=== PATIENT | female | born 1980 | race Caucasian/White ===

== ENCOUNTER → 2016-05-17 | Outpatient (CLI) | payer OTHER ==
--- NOTE | 2016-05-17 11:27 | US ---
EXAMINATION TYPE: US pelvis complete transvag DATE OF EXAM: 05/17/2016 11:06 AM COMPARISON: Previous study dated 12/26 11. CLINICAL HISTORY: R19.00/R10.2Pelvic mass/pain. Left pelvic pain, prior , partial hysterecto my TECHNIQUE: Transvaginal (TV) and Transabdominal (TA) Date of LMP: unknown EXAM MEASUREMENTS: Uterus: Surgically absent Endometrial Stripe: Surgically absent Right Ovary: 3.8 x 2.1 x 3.0 cm Left Ovary: 4.0 x 2.4 x 2.2 cm TECHNOLOGIST IMPRESSION: 1. Uterus: surgically absent vaginal cuff = 1.3cm 2. Endometrium: Surgically absent 3. Right Ovary: cystic area = 2.0 x 1.9 x 2.5cm 4. Left Ovary: appears wnl 5. Bilateral Adnexa: appears wnl IMPRESSION: 1. Status post subtotal hysterectomy. 2. Simple appearing right ovarian cyst.
== END | disposition home or self-care (01) ==
LOC: RADUSWWP 10:32
PROVIDERS: ATTEND Obstetrics & Gynecology
DX: N83.201 Unspecified ovarian cyst, right side (principal); Z90.710 Acquired absence of both cervix and uterus
CPT/HCPCS: 76830; 76856

== ENCOUNTER → 2017-05-25 | Outpatient (CLI) | payer BC ==
--- NOTE | 2017-05-25 11:53 | CT ---
EXAMINATION TYPE: CT brain w con DATE OF EXAM: 05/25/2017 COMPARISON: NONE HISTORY: MCKEON, sensitivity to light CT DLP: 935.6 mGycm Automated exposure control for dose reduction was used. CONTRAST: CT scan of the head is performed with IV Contrast, patient injected with 100 mL of Omnipaque 300. FINDINGS: There is no abnormal enhancing mass or midline shift identified. The ventricles and sulci are within normal limits in size. The globes are intact and the visualized sinuses are clear. IMPRESSION: Negative contrast enhanced head CT exam.
== END | disposition home or self-care (01) ==
LOC: RADCTMAIN 11:17
PROVIDERS: ATTEND Internal Medicine
DX: R51 Headache (principal)
CPT/HCPCS: 70460; Q9967

== ENCOUNTER 2018-03-17 21:58 | Emergency (ER) | payer BC ==
[2018-03-17 23:35] LABS: Amphetamine Screen,Urine Detected (NotDetected); Barbiturate Screen,Urine Not Detected (NotDetected); Benzodiazepines Screen,Urine Not Detected (NotDetected); Cocaine Screen,Urine Not Detected (NotDetected); Methadone Screen, Urine Not Detected (NotDetected); Opiate Screen,Urine Not Detected (NotDetected); Oxycodone Screen, Urine Not Detected (NotDetected); Phencyclidine Screen,Urine Not Detected (NotDetected); Tricyclic Antidepressant,Urine Not Detected (NotDetected); Urn Cannabinoid Scrn Not Detected (NotDetected)
--- NOTE | 2018-03-17 23:51 | ED ---
General Adult HPI - General Chief complaint: Psychiatric Symptoms Stated complaint: suicidal/petition Time Seen by Provider: 03/17/18 22:14 Source: patient, police Mode of arrival: ambulatory Limitations: no limitations - History of Present Illness Initial comments: Nicolasa is a 37-year-old female history of depression and anxiety who presents to the emergency department today in police custody for psychiatric evaluation. Per the patient she was in an argument with her who she is currently in the process of getting a divorce from, patient states that she simply told him that she was done. Patient states that she was trying to indicate to him that she was done fighting and that she did not want to deal with him anymore however he took it to interpret that she was suicidal and contacted the police. Patient reports she does have a history of depression and anxiety, her medications are prescribed by her primary care physician she's not had any recent changes in her medication she reports she's been compliant with her medications. Patient states that she feels her is just trying to make her look crazy because they're and have a drawnout court sanders. Per the police and the petition they witnessed text messages from the patient to her estranged stating that she wanted it all to end, saying goodbye multiple times and making reference to her life insurance paying off. Per the petition the patient's triplet 15-year-old children also witnessed the patient stating that she was going to drive her car into the river. - Related Data Allergies Allergy/AdvReac Type Severity Reaction Status Date / Time acetaminophen Allergy Rash/Hives Verified 03/17/18 22:12 [From Darvocet-N] propoxyphene Allergy Rash/Hives Verified 03/17/18 22:12 [From Darvocet-N] Review of Systems ROS Statement: Those systems with pertinent positive or pertinent negative responses have been documented in the HPI. ROS Other: All systems not noted in ROS Statement are negative. Past Medical History Past Medical History: Thyroid Disorder History of Any Multi-Drug Resistant Organisms: None Reported Past Surgical History: Adenoidectomy, Section, Hysterectomy, Tonsillectomy Additional Past Surgical History / Comment(s): thyroidectomy, ovarian cyst Past Psychological History: Anxiety, Depression Smoking Status: Current every day smoker Past Alcohol Use History: Occasional Past Drug Use History: None Reported General Exam - General Exam Comments Initial Comments: Physical Exam GENERAL: Patient is well-developed and well-nourished. Patient is nontoxic and well- hydrated and is in no distress. HENT: Normocephalic, Atraumatic. EYES: PERRL, EOMI PULMONARY: Unlabored respirations. No audible rales rhonchi or wheezing was noted. CARDIOVASCULAR: There is a regular rate and rhythm without any murmurs gallops or rubs. ABDOMEN: Soft and nontender with normal bowel sounds. SKIN: Skin is clear with no lesions or rashes and otherwise unremarkable. : Deferred NEUROLOGIC: Patient is alert and oriented x3. Moving all extremities spontaneously MUSCULOSKELETAL: Normal extremities with adequate strength and full range of motion. No lower extremity swelling or edema. No calf tenderness. PSYCHIATRIC: Anxious appearing, tapping her leg up and down very quickly, fidgeting with her hands Denies suicidal or homicidal intent Limitations: no limitations Limitations: no limitations Course Vital Signs 03/17/18 03/18/18 22:06 01:43 Temperature 97.8 F 97.7 F Pulse Rate 77 100 Respiratory 20 18 Rate Blood Pressure 147/96 126/77 O2 Sat by Pulse 99 100 Oximetry Medical Decision Making - Medical Decision Making The patient was seen and evaluated, history is obtained from the patient and review of the petition from police Is the patient with a history of depression and anxiety who is currently going through what sounds like a very unpleasant divorce Patient admits to being in a verbal altercation with her soon-to-be ex-, she states that she stated that she was done but that she wanted indicate she was not fighting with him however she believes he has misinterpreted her statements and is just "trying to make me look crazy" Police state that the patient sent multiple text messages indicating her goodbyes and making reference to the palate of her life insurance the also states that her triplet 15-year-old state here the patient states that she wanted drive her car into the river. Patient does state that she did make a statement that she was going to drive her car into the river but that fell was ordered for 6 months ago. She denies any statement today. Patient medically cleared for evaluation by psychiatry Patient evaluated by EPS - recommend discharge home with out patient follow up - Lab Data Lab Results 03/17/18 03/17/18 Range/Units 22:33 22:33 Urine HCG, Qual Not Detected (Not Detectd) Urine Opiates Screen Not Detected (NotDetected) Ur Oxycodone Screen Not Detected (NotDetected) Urine Methadone Screen Not Detected (NotDetected) Ur Propoxyphene Screen Not Detected (NotDetected) Ur Barbiturates Screen Not Detected (NotDetected) U Tricyclic Antidepress Not Detected (NotDetected) Ur Phencyclidine Scrn Not Detected (NotDetected) Ur Amphetamines Screen Detected H (NotDetected) U Methamphetamines Scrn Not Detected (NotDetected) U Benzodiazepines Scrn Not Detected (NotDetected) Urine Cocaine Screen Not Detected (NotDetected) U Marijuana (THC) Screen Not Detected (NotDetected) Disposition Clinical Impression: Depression Disposition: HOME SELF-CARE Condition: Good Is patient prescribed a controlled substance at d/c from ED?: No Referrals: Ramiro Wadsworth MD [Primary Care Provider] - 1-2 days
[2018-03-18 01:44] VITALS: BP 126/77; PULSE 100; RESP 18; TEMP 97.7
== END 2018-03-18 02:08 | disposition home or self-care (01) ==
LOC: EC 21:58
DX: F32.9 Major depressive disorder, single episode, unspecified (principal); F41.9 Anxiety disorder, unspecified; F17.200 Nicotine dependence, unspecified, uncomplicated; Z88.5 Allergy status to narcotic agent; Z88.6 Allergy status to analgesic agent; Z63.5 Disruption of family by separation and divorce
CPT/HCPCS: 80306; 81025; 82075; 99285

== ENCOUNTER → 2018-05-03 | Outpatient (CLI) | payer BC ==
--- NOTE | 2018-05-04 11:31 | US ---
EXAMINATION TYPE: US thyroid st tissue head/neck DATE OF EXAM: 05/03/2018 COMPARISON: NONE CLINICAL HISTORY: R94.6 Abn thyroid labs, R22.0 Swelling/mass/lump. Abnormal thyroid labs. Patient st ates partial thyroidectomy at age 14 due to goiter GLAND SIZE: Right Lobe: 2.6 x 0.6 x 1.2 cm Overall Parenchyma: heterogenous Left Lobe: 2.7 x 0.7 x 1.0 cm Overall Parenchyma: heterogeneous Isthmus Thickness: 0.3 cm NODULES RIGHT: # of nodules measured on right: 0 LEFT: # of nodules measured on left: 0 ISTHMUS: # of nodules measured in the isthmus: 0 Bilateral neck scanned, no evidence of lymphadenopathy. IMPRESSION: No sizable thyroid nodules. Tissue is somewhat heterogeneous correlate for thyroiditis.
== END | disposition home or self-care (01) ==
LOC: RADUSWWP 16:27
PROVIDERS: ATTEND Internal Medicine
DX: R22.0 Localized swelling, mass and lump, head (principal); R94.6 Abnormal results of thyroid function studies
CPT/HCPCS: 76536

== ENCOUNTER → 2018-12-06 | Outpatient (CLI) | payer BC ==
--- NOTE | 2018-12-06 15:21 | MR ---
EXAMINATION TYPE: MR knee LT wo con DATE OF EXAM: 12/06/2018 COMPARISON: None HISTORY: L knee pain TECHNIQUE: Multiplanar, multisequence imaging of the knee is performed without IV contrast. FINDINGS: MEDIAL MENISCUS: There is increased signal within the posterior horn medial meniscus compatible some internal derangement. No communication with the articular surface is evident. LATERAL MENISCUS: Anterior and posterior horns are intact without tear. CRUCIATE LIGAMENTS: Anterior cruciate ligament is intact. There may be some thickening within its mid portion. The posterior cruciate ligament however is poorly visualized. Correlate with the mechanism o f injury. Isolated posterior cruciate ligament injury is unusual. COLLATERAL LIGAMENTS: The medial collateral ligament and lateral collateral ligament complex are inta ct and unremarkable. EXTENSOR MECHANISM: Visualized quadriceps and patellar tendons are intact. EFFUSION: Small joint effusion is present. POPLITEAL CYST: No popliteal/griggs cyst. TRICOMPARTMENT SPACES: Preserved CARTILAGE: Preserved BONE MARROW SIGNAL: No focal abnormal marrow signal is appreciated. OTHER: No additional significant abnormality is appreciated. IMPRESSION: 1. Posterior cruciate ligament is poorly visualized. Isolated posterior cruciate ligament is an unusu al injury. Correlate with the mechanism of injury. 2. Small joint effusion. 3. Internal derangement posterior horn medial meniscus.
== END ==
LOC: RADMRIMAIN 11:00
PROVIDERS: ATTEND Internal Medicine
DX: S89.82XA Other specified injuries of left lower leg, initial encounter (principal); M23.322 Other meniscus derangements, posterior horn of medial meniscus, left knee

== ENCOUNTER → 2019-01-30 | Outpatient (CLI) | payer BC ==
--- NOTE | 2019-01-31 06:57 | US ---
EXAMINATION TYPE: US venous doppler duplex LE LT DATE OF EXAM: 01/30/2019 4:53 PM COMPARISON: NONE CLINICAL HISTORY: M79.604 left leg. SIDE PERFORMED: Left TECHNIQUE: The lower extremity deep venous system is examined utilizing real time linear array sonog dionicio with graded compression, doppler sonography and color-flow sonography. VESSELS IMAGED: External Iliac Vein (EIV) Common Femoral Vein Deep Femoral Vein Greater Saphenous Vein * Femoral Vein Popliteal Vein Small Saphenous Vein * Left Leg: negative for DVT Grayscale, color doppler, spectral doppler imaging performed of the deep veins of the left lower extr emity. There is normal flow, compressibility, vascular waveforms. IMPRESSION: No sonographic evidence of deep venous thrombosis within the left lower extremity.
== END | disposition home or self-care (01) ==
LOC: RADUSWWP 16:11
PROVIDERS: ATTEND Nurse Practitioner Adult Health
DX: M79.662 Pain in left lower leg (principal); R22.42 Localized swelling, mass and lump, left lower limb

== ENCOUNTER → 2019-02-11 | Outpatient (CLI) | payer BC ==
[2019-02-11 13:17] LABS: Basophils % (A) 0 %; Eosinophils # (A) 0.4 k/uL (0-0.7); Eosinophils % (A) 6 %; HCT 40.1 % (34.0-46.0); HGB 13.7 gm/dL (11.4-16.0); Lymphocytes # (A) 1.6 k/uL (1.0-4.8); Lymphocytes % (A) 22 %; MCH 29.8 pg (25.0-35.0); MCHC 34.1 g/dL (31.0-37.0); MCV 87.3 fL (80.0-100.0); Mean Platelet Volume 6.5; Monocytes # (A) 0.3 k/uL (0-1.0); Monocytes % (A) 4 %; Neutrophils # (A) 4.7 k/uL (1.3-7.7); Neutrophils % (A) 67 %; Platelet Count 232 k/uL (150-450)
--- NOTE | 2019-02-11 13:26 | XR ---
EXAMINATION TYPE: XR chest 2V DATE OF EXAM: 02/11/2019 COMPARISON: None HISTORY: 38-year-old female herniated nucleus pulposus, presurgical evaluation TECHNIQUE: Frontal and lateral views FINDINGS: The cardiomediastinal silhouette, aorta, and pulmonary vasculature are within normal limits. Lungs an d pleural spaces are clear. IMPRESSION: No acute cardiopulmonary process.
[2019-02-11 13:31] LABS: INR 0.9 (<1.2); Partial Thromboplastin Time 24.9 sec (22.0-30.0); Prothrombin Time 9.6 sec (9.0-12.0)
[2019-02-11 13:33] LABS: African American GFR (CKD) >90 (>60 ml/min/1.73 sqM); Anion Gap 8 mmol/L; Blood Urea Nitrogen 11 mg/dL (7-17); Calcium 9.6 mg/dL (8.4-10.2); Carbon Dioxide 19 mmol/L (22-30); Chloride 109 mmol/L (98-107); Glucose 100 mg/dL (74-99); Non-African American GFR(CKD) >90 (>60 ml/min/1.73 sqM); Potassium 4.3 mmol/L (3.5-5.1); Sodium 136 mmol/L (137-145)
[2019-02-11 13:40] LABS: Appearance,Urine Clear (Clear); Bilirubin,Urine Negative (Negative); Blood,Urine Negative (Negative); Color,Urine Yellow; Glucose,Urine (UA) Negative (Negative); Ketones,Urine Negative (Negative); Leukocyte Esterase,Urine Negative (Negative); Nitrite,Urine Negative (Negative); PH, Urine 5.5 (5.0-8.0); Protein,Urine Negative (Negative); Specific Gravity,Urine 1.015 (1.001-1.035); Urobilinogen,Urine <2.0 mg/dL (<2.0)
== END | disposition home or self-care (01) ==
LOC: LABPAT 11:56
PROVIDERS: ATTEND Orthopaedic Surgery Orthopaedic Surgery of the Spine
DX: Z01.812 Encounter for preprocedural laboratory examination (principal); Z01.818 Encounter for other preprocedural examination; M51.24 Other intervertebral disc displacement, thoracic region
CPT/HCPCS: 36415; 71046; 80048; 81003; 85025; 85610; 85730; 93005

== ENCOUNTER 2019-02-17 12:52 | Day surgery (SDC) | payer BC ==
[2019-02-11 15:01] VITALS: BMI 32.2
[~2019-02-17 12:52] MED LIST: BACITRACIN 50,000 UNIT, POLYMYXIN B 500,000 UNIT in SODIUM CHLORIDE 0.9% IRRIGATIO 1,00... IRRIGATION ONE; DEXAMETHASONE SOD PHOSPHATE 10 MG/ML 1 ML VIAL IV ONE; MIDAZOLAM 2 MG/2 ML VIAL IV PRN; ONDANSETRON 4 MG/2 ML VIAL IVP ONE; SCOPOLAMINE 1.5MG/72HR PATCH TRANSDERM ONE
[2019-02-17] MEDS ORDERED: LIDOCAINE 1% 20 ML VIAL (10MG/ML) FOR IV START INTRADERMA ONE (13:23)
[2019-02-17] MEDS ORDERED: LACTATED RINGERS 1,000 ML IV ONE (13:23)
[2019-02-17] MEDS ORDERED: ONDANSETRON 4 MG/2 ML VIAL ONE (14:47)
[2019-02-17] MEDS ORDERED: HYDROmorphone (PF) 1 MG/ML ONE (14:47)
[2019-02-17] MEDS ORDERED: LIDOCAINE 1% INJ 10MG/ML (20 ML MDV) ONE (14:47)
[2019-02-17] MEDS ORDERED: SUCCINYLCHOLINE CHLORIDE 100 MG/5 ML SYR IV ONE (14:47)
[2019-02-17] MEDS ORDERED: KETAMINE 10 MG/ML 20 ML VIAL ONE (14:47)
[2019-02-17] MEDS ORDERED: MIDAZOLAM 2 MG/2 ML VIAL ONE (14:47)
[2019-02-17] MEDS ORDERED: PROPOFOL 10 MG/ML 20 ML VIAL IV ONE (14:47)
[2019-02-17] MEDS ORDERED: fentaNYL (PF) 50 MCG/ML 2 ML AMP ONE (14:47)
[2019-02-17] MEDS ORDERED: LIDOCAINE 1%-EPI 1:100,000 20 ML VIAL SQ ONE (15:25)
[2019-02-17] MEDS ORDERED: BUPIVACAINE (PF) 0.25% 30 ML VIAL SQ ONE (15:25)
[2019-02-17] MEDS ORDERED: THROMBIN (BOVINE) 5,000 UNIT VIAL TOPICAL ONE (15:25)
[2019-02-17] MEDS ORDERED: GELATIN SPONGE,ABSORB (LARGE) 1 EACH SPONGE TOPICAL ONE (15:25)
[2019-02-17] MEDS ORDERED: methylPREDNISolone ACETATE 40 MG/ML 1 ML VIAL INJ ONE (16:01)
[2019-02-17] MEDS ORDERED: HYDROcodone/APAP 5-325MG 1 EACH TAB PO PRN (16:25)
[2019-02-17] MEDS ORDERED: HYDROmorphone 0.5 MG/0.5 ML SYRINGE IVP PRN (16:25)
[2019-02-17] MEDS ORDERED: IBUPROFEN 600 MG TAB PO PRN (16:25)
[2019-02-17] MEDS ORDERED: KETOROLAC 30 MG/ML 1 ML VIAL IVP PRN (16:25)
[2019-02-17] MEDS ORDERED: ONDANSETRON 4 MG/2 ML VIAL IVP PRN (16:25)
[2019-02-17] MEDS ORDERED: MAGNESIUM HYDROXIDE 2,400 MG/10 ML CUP PO PRN (16:25)
[2019-02-17] MEDS ORDERED: BENZOCAINE/MENTHOL LOZENG 1 EACH LOZENGE MUCOUS MEM PRN (16:25)
[2019-02-17] MEDS ORDERED: IBUPROFEN 800 MG TAB PO PRN (16:27)
--- NOTE | 2019-02-17 16:32 | P.OP ---
Date of Procedure: 02/17/19 Preoperative Diagnosis: Herniated nucleus pulposis L4 5, left lower extremity radiculopathy, low back pain, left lower extremity weakness Postoperative Diagnosis: Same Anesthesia: GETA Pathology: none sent Condition: stable Disposition: PACU Description of Procedure: BRIEF OPERATIVE NOTE Preoperative Diagnosis:Herniated nucleus pulposis L4 5, left lower extremity radiculopathy, low back pain, left lower extremity weakness Postoperative Diagnosis:Herniated nucleus pulposis L4 5, left lower extremity radiculopathy, low back pain, left lower extremity weakness Procedure: Laminectomy and decompression L4 5 Discectomy for decompression L4 5 Surgeon: Dr. Owen Rough Patcher: Kiko Ford is present throughout the entire the case persistence during positioning, dissection, exposure, visualization, and all crucial elements of the case as well as closure. Anesthesia: General anesthesia per Dr. Ingram Estimated blood loss: Approximately 50 mL Complications: None apparent Components implanted: None Disposition: To recovery room in good stable condition. OPERATIVE INDICATIONS The patient has been having issues in their lower back and lower extremities. She is having severe pain at her left lower extremity with radicular symptoms at follows and L5 distribution. She is having weakness at her left lower extremity as well. This is in worsening for her despite conservative treatment. She is found have a large disc herniation centrally and to the left paracentral area at L4 5 which correlated well with her low back and lower extremity symptoms. She is not having any prolonged benefit despite aggressive conservative care. The patient has been through conservative treatment. The patient is also having some issues with her knee which involved her meniscus and in some internal derangement but these issues were separate from her lumbar disc herniation. We discussed various treatment options including surgery, and the patient wishes to proceed with surgery We discussed the risk, patient's alternatives and benefits of surgery including but not limited to, risk of bleeding risk of infection, risk of need for further surgery, risk of decreased, loss of motion, loss of function, nerve damage, paralysis, heart attack, blindness and . OPERATIVE SUMMARY After discussing all the risks, patient alternatives and benefits at length, the patient elected to proceed with surgical intervention, signed informed consent, and presented for their procedure. The patient was seen and examined in the preoperative holding area and the surgical site was marked. The patient was given antibiotics and brought to the operating room. The patient was sedated and intubated by anesthesia in standard fashion. The corine herman was positioned on to the operating room table in a prone position on the appropriate frame which was well-padded and well molded. We were careful to pad any bony prominences and pressure points. We were careful to maintain the patient's cervical spine and good neutral alignment and position throughout. The patient was prepped and draped in a normal standard fashion. An appropriate timeout and keystone protocol performed. We were able to proceed with the surgery. Fluoroscopy was utilized to establish the appropriate level at L4 5. Patient does have somewhat of a sacralized L5-S1 disc space. This was noted at the fluoroscopy as well and correlated with her prior imaging. The local wound area was infiltrated with local anesthetic. An incision was made at the midline longitudinally over the appropriate levels at L4 5. Dissection was taken down subcutaneously to the level of the fascia which was split midline. Dissection was taken over the lamina. Intraoperative fluoroscopy was taken which showed a marker at the appropriate level of L4 5. With the appropriate level positively confirmed, we were able to proceed with laminectomy at L4 5. The wound was copiously irrigated and suctioned dry as had been done periodically throughout the case. I performed a laminectomy with a combination of curettes and a high-speed bur and Kerrison rongeurs. A small medial facetectomy was performed again further access. A partial foraminotomy was also performed. Portions of the ligamentum flavum were taken down to expose the dura and traversing nerve root. I was able to mobilize the traversing nerve root and gain access to the disc space. Note was made of obvious compression from the disc. There is significant disc protrusion with extruded fragment under the posterior longitudinal ligament. Protecting the soft tissue structures, a small annulotomy was established. I was able to perform discectomy and remove any extruded disc fragments and any loose fragments from w ithin the disc itself. There is large extruded disc fragmentation and this was removed. There is some disc desiccation noted. I tried to preserve the disc annulus that appeared stable. There were no further extruded fragments noted. There is no evidence of dural tear or leak. Good hemostasis maintained. The wound was copiously irrigated and suctioned dry. Good decompression and discectomy was noted. We were able to proceed with closure. The fascia was closed for a watertight closure. The subcuticular tissue was closed with absorbable suture. The wound was cleaned and dried and dressed with the appropriate dressing. The drapes were broken down. The patient was gently rolled back onto their hospital bed being careful to maintain their cervical spine and good neutral alignment and position. They were woken up by anesthesia, extubated, and brought to the recovery room in good stable condition. The patient will be admitted to the hospital for observation and for appropriate postoperative care, medical management and monitoring. We will continue to follow them closely about the postoperative course.
[2019-02-17] MEDS ORDERED: PROMETHAZINE INJ 25 MG/ML 1 ML VIAL IVPB ONE (16:37)
[2019-02-17] MEDS: HYDROmorphone 0.5 MG/0.5 ML SYRINGE IVP PRN ×3 (16:39→17:28)
--- NOTE | 2019-02-17 17:07 | XR ---
EXAMINATION TYPE: XR lumbar spine 1V, FL guidance operating room DATE OF EXAM: 02/17/2019 COMPARISON: NONE HISTORY: 38-year-old female lumbar laminectomy FINDINGS: Intraoperative fluoroscopy during lumbar laminectomy. Metallic instrument posterior to the L4-L5 leve l. FLUOROSCOPY Fluoroscopy time of 6 seconds was used during lumbar laminectomy. 1 image/s document/s the procedure . IMPRESSION: Intraoperative fluoroscopy as above.
[2019-02-17] MEDS: LACTATED RINGERS 1,000 ML IV SCH (17:51)
[2019-02-17] MEDS: SODIUM CHLORIDE 0.9% 1,000 ML IV SCH (18:23)
[2019-02-17] MEDS ORDERED: traMADol 50 MG TAB PO SCH (21:00)
[2019-02-18] MEDS: HYDROcodone/APAP 5-325MG 1 EACH TAB PO PRN ×2 (00:17→08:43)
[2019-02-18 04:51] VITALS: TEMP 97.9
[2019-02-18] MEDS: SODIUM CHLORIDE 0.9% 1,000 ML IV SCH ×2 (04:59→08:52)
[2019-02-18] MEDS: LACTATED RINGERS 1,000 ML IV SCH (05:00)
[2019-02-18 08:12] VITALS: BP 107/63; PULSE 64; RESP 18
[2019-02-18] MEDS ORDERED: ESCITALOPRAM 20 MG TAB PO SCH (09:00)
[2019-02-18] MEDS ORDERED: THYROID PORK PO SCH (09:00)
== END 2019-02-18 11:30 | disposition home or self-care (01) ==
LOC: OR 12:52 → 3NMEDONC 16:58 → OR 02-18 11:30
PROVIDERS: ATTEND Orthopaedic Surgery Orthopaedic Surgery of the Spine
DX: M51.16 Intervertebral disc disorders with radiculopathy, lumbar region (principal); M47.27 Other spondylosis with radiculopathy, lumbosacral region; M41.26 Other idiopathic scoliosis, lumbar region; E03.9 Hypothyroidism, unspecified; F32.9 Major depressive disorder, single episode, unspecified; R45.0 Nervousness; Z83.3 Family history of diabetes mellitus; Z82.49 Family history of ischemic heart disease and other diseases of the circulatory system; Z90.710 Acquired absence of both cervix and uterus; Z79.890 Hormone replacement therapy; Z79.899 Other long term (current) drug therapy
CPT/HCPCS: 86900; 86901; 86850; 72020; 63030; J2250; J1030; J2550; J0690 ×2; J2405; J2001; J3010; J1170 ×2; J0330; J2704

== ENCOUNTER → 2021-09-30 | Outpatient (CLI) | payer BC ==
[2021-09-30 11:08] LABS: T4, Free (Free Thyroxine) 0.64 ng/dL (0.800-1.800)
== END | disposition home or self-care (01) ==
LOC: LABWHC1 07:57
PROVIDERS: ATTEND Internal Medicine
DX: E03.9 Hypothyroidism, unspecified (principal)
CPT/HCPCS: 36415; 84439; 84443

== ENCOUNTER 2021-12-13 18:31 | Emergency (ER) | payer BC ==
[2021-12-13 19:03] VITALS: BP 149/88; PULSE 80; RESP 18; TEMP 98.7
--- NOTE | 2021-12-13 19:48 | ED ---
Extremity Problem HPI - General Chief complaint: Extremity Problem,Nontraumatic Stated complaint: poss blood clot - lt leg Time Seen by Provider: 12/13/21 19:07 Source: patient Mode of arrival: ambulatory Limitations: no limitations - History of Present Illness Initial comments: Patient is a 41-year-old female presenting to the emergency room at the direction of her primary care provider for swelling pain and numbness and tingling which is sudden onset to her left lower extremity. She was sent here by her PCP for a Doppler as they were unable to complete or schedule a Doppler outpatient. She reports that the swelling occurred suddenly and she is having to utilize her sister's shoes which are larger than her typical shoes She denies any trauma to the limb, wounds or range of motion impairment not typically related to swelling. Denies any shortness of breath, chest pain, abdominal pain, nausea vomiting, fevers or chills. She has a past medical history significant for back pain with radiculopathy, anxiety/depression, hypothyroidism, and ADHD. - Related Data Home Medications Medication Instructions Recorded Confirmed Escitalopram [Lexapro] 20 mg PO DAILY 02/11/19 02/11/19 Ibuprofen [Motrin] 800 mg PO Q8H PRN 02/11/19 02/11/19 Thyroid,Pork [[place] Thyroid] 220 mg PO DAILY 02/11/19 02/11/19 traMADol HCL 50 mg PO HS 02/17/19 02/17/19 Previous Rx's Medication Instructions Recorded HYDROcodone/APAP 5-325MG [[place] 5] 1 each PO Q6HR PRN #12 tab 02/17/19 traMADol HCL [Ul[place]] 50 mg PO Q4HR PRN 3 Days #18 tab 02/17/19 Allergies Allergy/AdvReac Type Severity Reaction Status Date / Time acetaminophen Allergy Rash/Hives Verified 12/13/21 19:03 [From Darvocet-N] propoxyphene Allergy Rash/Hives Verified 12/13/21 19:03 [From Darvocet-N] Review of Systems ROS Statement: Those systems with pertinent positive or pertinent negative responses have been documented in the HPI. ROS Other: All systems not noted in ROS Statement are negative. Past Medical History Past Medical History: Thyroid Disorder History of Any Multi-Drug Resistant Organisms: None Reported Past Surgical History: Adenoidectomy, Section, Hysterectomy, Orthopedic Surgery, Tonsillectomy Additional Past Surgical History / Comment(s): thyroidectomy, ovarian cyst Past Psychological History: Anxiety, Depression Smoking Status: Never smoker Past Alcohol Use History: Occasional Past Drug Use History: None Reported General Exam Limitations: no limitations General appearance: alert, in no apparent distress Head exam: Present: atraumatic, normocephalic, normal inspection Eye exam: Present: normal appearance, PERRL, EOMI. Absent: scleral icterus, conjunctival injection, periorbital swelling ENT exam: Present: normal exam, mucous membranes moist Neck exam: Present: normal inspection Respiratory exam: Absent: respiratory distress, accessory muscle use Left Lower Leg exam: Present: full ROM, tenderness, swelling. Absent: laceration, ecchymosis, deformity Ankle exam: Present: full ROM, swelling. Absent: laceration, ecchymosis, erythema Foot/Toe exam: Present: full ROM, swelling. Absent: laceration, ecchymosis Gait: observed and limited by pain Course Vital Signs 12/13/21 18:59 Temperature 98.7 F Pulse Rate 80 Respiratory 18 Rate Blood Pressure 149/88 O2 Sat by Pulse 98 Oximetry Medical Decision Making - Medical Decision Making 41-year-old female presenting to her primary care provider with left lower extremity swelling, calf pain, tingling and pins and needle sensation with sudden onset earlier today. Will order Doppler of the lower extremity. No indication for other diagnostic imaging or laboratory studies at this time. Ultrasound Doppler left lower extremity negative for DVT. Findings discussed wit h patient. Encouraged elevation and ice. Advised to follow-up with primary care provider. Low-salt diet encouraged. Case discussed with Dr. Bajwa - Radiology Data Radiology results: report reviewed, image reviewed US venous doppler duplex LE left negative for DVt. Disposition Clinical Impression: Localized swelling of left lower extremity Disposition: HOME SELF-CARE Condition: Stable Instructions (If sedation given, give patient instructions): Leg Edema (ED) Additional Instructions: Please elevate lower extremity swelling. Low-salt diet encouraged. Utilize Tylenol or any proven as needed for pain. May apply heat or ice as needed for pain. Please follow-up with your primary care provider. Please return to the Emergency Department if symptoms worsen or any other concerns. Is patient prescribed a controlled substance at d/c from ED?: No Referrals: Christopher Rangel MD [Primary Care Provider] - 1-2 days Time of Disposition: 20:10
--- NOTE | 2021-12-13 19:48 | US ---
EXAMINATION TYPE: US venous doppler duplex LE LT DATE OF EXAM: 12/13/2021 7:33 PM COMPARISON: 01/30/19 CLINICAL HISTORY: pain swelling tingling. Left calf pain x 1 day SIDE PERFORMED: Left TECHNIQUE: The lower extremity deep venous system is examined utilizing real time linear array sonog dionicio with graded compression, doppler sonography and color-flow sonography. VESSELS IMAGED: Common Femoral Vein Deep Femoral Vein Greater Saphenous Vein * Femoral Vein Popliteal Vein Small Saphenous Vein * Proximal Calf Veins (* superficial vessels) Left Leg: Negative for DVT IMPRESSION: No evidence of deep vein thrombosis in the left leg.
== END 2021-12-13 20:20 | disposition home or self-care (01) ==
LOC: EC 18:31
DX: R22.42 Localized swelling, mass and lump, left lower limb (principal); M79.662 Pain in left lower leg; R20.0 Anesthesia of skin; R20.2 Paresthesia of skin; E03.9 Hypothyroidism, unspecified; Z88.6 Allergy status to analgesic agent; Z88.5 Allergy status to narcotic agent
CPT/HCPCS: 99284

== ENCOUNTER → 2021-12-14 | Outpatient (CLI) | payer BC ==
--- NOTE | 2021-12-15 07:27 | XR ---
EXAMINATION TYPE: XR foot complete LT DATE OF EXAM: 12/14/2021 6:23 PM INDICATION: Patient age:Female; 41 years old; Reason for study: M79.672 L FOOT PAIN; [facility]. COMPARISON: None TECHNIQUE: The left foot was examined in the AP, oblique, and lateral projections. FINDINGS: No evidence of any acute osseous pathology. No evidence of soft tissue swelling. Joints are preserve d. No radiopaque foreign bodies. Small posterior and plantar calcaneal spurs. IMPRESSION: 1. No evidence of acute fracture. 2. Small posterior and plantar calcaneal spurs.
== END | disposition home or self-care (01) ==
LOC: RADXRMAIN 18:01
PROVIDERS: ATTEND Internal Medicine
DX: M77.32 Calcaneal spur, left foot (principal)

== ENCOUNTER → 2023-05-01 | Outpatient (CLI) | payer BC ==
[2023-05-01 10:53] LABS: Basophils # (A) 0.05 X 10*3/uL (0.00-0.10); Basophils % (A) 0.6 %; Eosinophils # (A) 0.22 X 10*3/uL (0.04-0.35); Eosinophils % (A) 2.5 %; HCT 46.7 % (37.2-46.3); HGB 16.1 g/dL (12.0-15.0); Lymphocytes # (A) 2.53 X 10*3/uL (0.90-5.00); Lymphocytes % (A) 28.8 %; MCH 30.9 pg (27.0-32.0); MCHC 34.5 g/dL (32.0-37.0); MCV 89.6 FL (80.0-97.0); Mean Platelet Volume 11.4 FL (9.5-12.2); Monocytes # (A) 0.41 X 10*3/uL (0.20-1.00); Monocytes % (A) 4.7 %; NRBC Per 100 WBC 0 X 10*3/uL (0.00-0.01); Neutrophils # (A) 5.55 X 10*3/uL (1.80-7.70); Neutrophils % (A) 62.9 %; Platelet Count 291 X 10*3/uL (140-440); RBC 5.21 X 10*6/uL (4.10-5.20); RDW 14.8 % (11.5-14.5)
[2023-05-01 11:25] LABS: ALT 66 U/L (8-44); AST 93 U/L (13-35); Albumin 4.8 g/dL (3.8-4.9); Albumin/Globulin Ratio 1.92 Ratio (1.60-3.17); Alkaline Phosphatase 138 U/L (41-126); Blood Urea Nitrogen 6.6 mg/dL (9.0-27.0); Calcium 9.5 mg/dL (8.7-10.3); Carbon Dioxide 20.6 mmol/L (21.6-31.8); Chloride 101 mmol/L (96-109); Chol/HDL Ratio 5.13 Ratio; Globulin 2.5 g/dL (1.6-3.3); Glucose 113 mg/dL (70-110); LDL Cholesterol,Calculated 155.9 mg/dL (0.0-131.0); Potassium 3.8 mmol/L (3.5-5.5); Sodium 136 mmol/L (135-145); Total Bilirubin 1.2 mg/dL (0.3-1.2); Total Protein 7.3 g/dL (6.2-8.2)
[2023-05-01 11:26] LABS: T4, Free (Free Thyroxine) <0.11 ng/dL (0.80-1.80)
== END | disposition home or self-care (01) ==
LOC: LABWHC1 07:44
PROVIDERS: ATTEND Internal Medicine
DX: Z00.00 Encounter for general adult medical examination without abnormal findings (principal); E03.9 Hypothyroidism, unspecified
CPT/HCPCS: 36415; 80053; 80061; 84439; 84443; 85025